=== PATIENT | female | born 1980 | race Caucasian/White ===

== ENCOUNTER 2019-11-07 19:48 | Emergency (ER) | payer MEDICAID, OTHER ==
[~2019-11-07] VITALS: Ht 165.1 cm; Wt 77.1 kg
[~2019-11-07 19:48] MED LIST: SERT50TA PO
--- NOTE | 2019-11-07 20:04 | PHYS DOC ---
Past History Past Medical History: No Pertinent History Past Surgical History: Tonsillectomy Smoking: Non-smoker Alcohol Use: None Drug Use: None Adult General Chief Complaint Chief Complaint: NAUSEA/VOMITING/DIARRHEA...." I am ten weeks... ... I worried I got food poisoning.. I never been this sick before when I ve been ... we are visiting from [facility]... " [facility] HPI Patient is a 38 year old female who presents with above hx and complaints nausea and vomiting and approximately 10 weeks . Patient has had 5 pregnancies 2 miscarriages 2 babies carried to term. In current of approximately 10 weeks. Patient currently visiting from [place]. Patient denies any intake of specific bad food , but concerned because she read about Escherichia coli infections. Patient has vomited several times today and has had some dry heaves. Patient also complaining of green colored diarrhea. Patient has no history immunosuppression. Normally healthy. Has not noted any blood in stools. Patient reports other family members are healthy. Patient denies any contact with reptiles, birds or amphibians. No vaginal discharge. Review of Systems Review of Systems Constitutional: Denies fever or chills [] Eyes: Denies change in visual acuity, redness, or eye pain [] HENT: Denies nasal congestion or sore throat [] Respiratory: Denies cough or shortness of breath [] Cardiovascular: No additional information not addressed in HPI [] GI: Complaints of generalized abdominal pain, nausea, vomiting, and diarrhea [] : Denies dysuria or hematuria [] Musculoskeletal: Denies back pain or joint pain [] Integument: Denies rash or skin lesions [] Neurologic: Denies headache, focal weakness or sensory changes [] Endocrine: Denies polyuria or polydipsia [] All other systems were reviewed and found to be within normal limits, except as documented in this note. Family History Family History Noncontributory Allergies Allergies Allergies Coded Allergies Type Severity Reaction Last Updated Verified Cefaclor Allergy Intermediate rash 03/03/14 Yes Physical Exam Physical Exam Constitutional: Well developed, well nourished, no acute distress, non-toxic appearance. [] HENT: Normocephalic, atraumatic, bilateral external ears normal, oropharynx moist, no oral exudates, nose normal. [] Eyes: PERRLA, EOMI, conjunctiva normal, no discharge. [] Neck: Normal range of motion, no tenderness, supple, no stridor. [] Cardiovascular:Heart rate regular rhythm, no murmur [] Lungs & Thorax: Bilateral breath sounds clear to auscultation [] Abdomen: Bowel sounds hyperactive, soft, mild tenderness, no masses, no pulsatile masses. Limited exam in waiting room. Skin: Warm, dry, no erythema, no rash. [] Back: No tenderness, no CVA tenderness. [] Extremities: No tenderness, no cyanosis, no clubbing, ROM intact, no edema. [] Neurologic: Alert and oriented X 3, normal motor function, normal sensory function, no focal deficits noted. [DTRs +2 brachial Psychologic: Affect very anxious, judgement normal, mood normal. [] EKG EKG [] Radiology/Procedures Radiology/Procedures [] Course & Med Decision Making Course & Med Decision Making Pertinent Labs and Imaging studies reviewed. (See chart for details) Pt. upset because she could not be immediately placed in a room. ( No rooms currently available and/ or cleaned Note pt. apparently became impatient and left before Zofran and could be placed in room. Impression: 1. Acute gastroenteritis 2. Reportedly 10 weeks [] Dragon Disclaimer Dragon Disclaimer This electronic medical record was generated, in whole or in part, using a voice recognition dictation system. Departure Departure: Disposition: 01 HOME/RESIDENCE PRIOR TO ADM Condition: STABLE Referrals: PCP,NO (PCP) Dragon Disclaimer This chart was dictated in whole or in part using Voice Recognition software in a busy, high-work load, and often noisy Emergency Department environment. It may contain unintended and wholly unrecognized errors or omissions. HAZEL WILL MD Nov 07, 2019 20:04
[2019-11-07] MEDS: ONDANSETRON ODT 4 MG TAB.RAPDIS PO ONE (20:15)
[2019-11-07] MEDS: ACETAMINOPHEN 500 MG TABLET PO ONE (20:15)
[2019-11-07 20:50] VITALS: BP 116/81
[2019-11-07] MEDS ORDERED: IV RINGERS SOLUTION,LACTATED 1,000 ML IV SCH (21:25)
[2019-11-07] MEDS ORDERED: ONDANSETRON PF 4 MG/2 ML VIAL. IVP ONE (21:30)
[2019-11-07] MEDS ORDERED: FAMOTIDINE 20 MG/2 ML VIAL IVP ONE (21:30)
== END 2019-11-07 21:33 | disposition left against medical advice (07) ==
LOC: ER 19:48
DX: O99.611 Diseases of the digestive system complicating pregnancy, first trimester (principal); K52.9 Noninfective gastroenteritis and colitis, unspecified; Z88.1 Allergy status to other antibiotic agents; Z3A.10 10 weeks gestation of pregnancy
CPT/HCPCS: 94640; 99281; Q0162